=== PATIENT | female | born 2000 | race Caucasian/White ===

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

== ENCOUNTER 2021-02-06 16:40 | Emergency (ER) | payer BC, SELFPAY ==
[2021-02-06 16:41] VITALS: BP 147/90; PULSE 95; RESP 16; TEMP 36.8; O2SAT 97; BMI 22.8
--- NOTE | 2021-02-06 16:58 | EKG12_ITS ---
Test Reason : IRREGULARBEAT Blood Pressure : / mmHG Vent. Rate : 100 BPM Atrial Rate : 100 BPM P-R Int : 158 ms QRS Dur : 080 ms QT Int : 350 ms P-R-T Axes : 077 058 035 degrees QTc Int : 451 ms Normal sinus rhythm Normal ECG Confirmed by PEDRO PABLO PEREZ, LEO ([id number]), non linear editor FABIÁN BARRY ([id number]) on 02/07/2021 12:54:35 PM Referred By: HERNAN Confirmed By:MARIE CHAMORRO MD
--- NOTE | 2021-02-06 17:00 | EDS_ITS ---
HPI History of Present Illness Chief Complaint: Palpitations Informant: patient Onset/Context/Timing Onset: Yesterday Context: Gradual Onset Timing: Intermittent Current Severity: Mild Maximum Severity: Moderate Narrative Narrative: Patient present secondary to palpitations. Patient states symptoms started last night. She initially thought her heart was skipping a few beats. She now feels like her heart is intermittently beating into her throat. She has no other symptoms. She called the nurse hotline who suggested if she has any further symptoms to go to the emergency room. She talked to her GP who recommended she come in for at least an EKG. [facility] Medical History (Updated 02/06/21 @ 18:[address] Michelle Castillo MD) Anxiety Delayed gastric emptying Eosinophilic esophagitis IBS (irritable bowel syndrome) Home Medications amitriptyline 10 mg PO DAILY 07/18/19 [History Last Taken Unknown] norgestimate-ethinyl estradiol 1 ea PO DAILY 07/18/19 [History Last Taken Unknow n] lorazepam 1 mg PO TID PRN #9 tab 07/20/19 [Rx Last Taken Unknown] ondansetron HCl 8 mg PO Q8H PRN 07/20/19 [History Last Taken Unknown] promethazine 25 mg PO Q8H PRN PRN #15 tab 07/20/19 [Rx Last Taken Unknown] Allergy/AdvReac Type Severity Reaction Status Date / Time buspirone [From BuSpar] Allergy Chest Verified 02/06/21 16:44 tightness clindamycin Allergy Fever and Verified 02/06/21 16:44 skin rash latex Allergy Rash Verified 02/06/21 16:43 Penicillins Allergy Anaphylaxis Verified 02/06/21 16:43 sulfamethoxazole Allergy NEEDS Verified 02/06/21 16:44 [From Bactrim] FOLLOW-UP trimethoprim [From Bactrim] Allergy NEEDS Verified 02/06/21 16:44 FOLLOW-UP aspartame AdvReac Other Verified 02/06/21 16:43 caffeine AdvReac Vomiting Verified 02/06/21 16:43 peanut AdvReac Vomiting Verified 02/06/21 16:43 red dye AdvReac Vomiting Verified 02/06/21 16:43 tree nut AdvReac Vomiting Verified 02/06/21 16:43 DAIRY AdvReac Vomiting Uncoded 02/06/21 16:43 MSG AdvReac Other Uncoded 02/06/21 16:43 Family History Other Thyroid disorder Social History Smoking Status: Never smoker ROS ROS ED Constitutional Constitutional ED: Denies chills or fever(s) Eyes Eyes: Denies change in vision ENT ENT ED: Denies sore throat Cardiovascular Cardiovascular: Reports palpitations; Denies chest pain Respiratory/Chest Respiratory/Chest: Denies cough or dyspnea Gastrointestinal Gastrointestinal: Denies abdominal pain, diarrhea, nausea or vomiting Genitourinary Genitourinary ED: Denies dysuria Musculoskeletal Musculoskeletal: Denies back pain Integumentary Denies rash Neurologic Neurologic: Denies headache(s) or weakness Psychiatric Psychiatric: Denies anxiety or depression Endocrine Endocrinology: Denies polydipsia or polyuria Allergic/Immunologic Allergic/Immunologic ED: Denies urticaria EXAM Physical Exam Const Vital Signs: 02/06/21 16:41 02/06/21 17:51 Temperature 98.2 F Temperature Source Temporal Pulse Rate 95 92 Respiratory Rate 16 99 H Blood Pressure 147/90 H Blood Pressure Mean 109 Pulse Ox 97 99 Oxygen Delivery Method Room Air Room Air Positive well nourished and well developed General Appearance ED: well developed HEENT Reports normocephalic and head/scalp atraumatic Eyes PERRL and EOMs intact bilaterally Neck supple Chest Wall inspection of chest normal and palpation of chest normal Resp normal respiratory effort and clear to auscultation bilaterally Cardio regular rate and regular rhythm GI normal to inspection, nondistended, normoactive bowel sounds Palpation: soft Back/Spine no CVA tenderness Extremity normal to inspection Neuro oriented x3 and no sensory deficits noted Sensorium / Orientation: alert Motor Exam: strength 5/5 throughout Psych mental status grossly normal Skin no rashes or lesions noted MDM MDM MDM Narrative Medical decision making narrative: Patient was placed on cardiac cath lab radiology technologist. EKG and labs are obtained. Lab Data Attestation: I reviewed the patient's lab results. Labs: Laboratory Results - last 24 hr 02/06/21 02/06/21 02/06/21 17:05 17:05 17:05 WBC 6.7 RBC 4.48 Hgb 12.5 Hct 38.4 MCV 85.7 MCH 27.9 MCHC 32.6 RDW Std Deviation 42.1 RDW Coeff of Bucky 13.6 Plt Count 327 MPV 9.1 Immature Gran % (Auto) 0.200 Neut % (Auto) 62.8 Lymph % (Auto) 29.0 [place] % (Auto) 6.6 Eos % (Auto) 1.1 Baso % (Auto) 0.3 Absolute Neuts (auto) 4.2 Absolute Lymphs (auto) 1.93 Nucleated RBC % 0 Sodium 140 Potassium 3.9 Chloride 107 Carbon Dioxide 27.0 Anion Gap 6 BUN 10 Creatinine 0.71 Estim Creat Clear Calc 128.56 Est GFR (MDRD) Af Amer 136 Est GFR (MDRD) Non-Af 112 BUN/Creatinine Ratio 14.1 Glucose 114 H Calcium 9.0 TSH 1.66 Serum , Qual NEGATIVE EKG Initial EKG: Attestation: I personally reviewed and interpreted this EKG as follows: Interpretation: Sinus Rhythm (Sinus at 100 with no acute ischemia. Normal intervals.) Treatment and Re-Evaluation Comments:: On repeat evaluation patient resting comfortably. Test results disc ussed with her and all are unremarkable. Patient continue to monitor her symptoms and return if needed. She will follow up with her GP as soon as possible. Discharge Plan Triage Chief Complaint: Palpitations ED Provider: Michelle Castillo Dx/Rx/DC Orders Clinical Impression: Heart palpitations Instructions: ED Palpitations Prescriptions: No Action norgestimate-ethinyl estradiol 1 EACH tablet 1 ea PO DAILY RF: 0 amitriptyline 10 MG tablet 10 mg PO DAILY RF: 0 ondansetron HCl 8 MG tablet 8 mg PO Q8H PRN (Reason: NAUSEA/VOMITNG) RF: 0 promethazine 25 MG tablet 25 mg PO Q8H PRN PRN (Reason: Nausea) Qty: 15 RF: 0 lorazepam 1 MG tablet 1 mg PO TID PRN (Reason: abdominal migraine) Qty: 9 RF: 0 Referrals: IVANIA CASTILLO [Other] - As soon as possible Disposition Disposition: Home, self care
--- NOTE | 2021-02-06 17:13 | NURSING ---
NO OLD EKGS
[2021-02-06 17:20] LABS: Absolute Lymphocyte Count 1.93 X10^3/uL (0.83-4.51); Absolute Neutrophil Count 4.2 X10^3/uL (2.0-7.7); Basophil# 0.02 X10^3/uL; Basophil% 0.3 % (0-1); Eosinophil# 0.07 X10^3/uL; Eosinophils% 1.1 % (0-5); Hematocrit 38.4 % (37-47); Hemoglobin 12.5 g/dL (12.0-15.0); Lymphocyte # 1.93 X10^3/ul (0.83-4.51); Mean Corp Hgb Conc 32.6 g/dL (32-36); Mean Corpuscular Hgb 27.9 pg (27.0-32.0); Mean Corpuscular Volume 85.7 fL (81-99); Mean Platelet Vol. 9.1 fl (6.2-12.0); Monocyte# 0.44 X10^3/uL; Monocyte% 6.6 % (0-10); NRBC Flagged by Analyzer 0 % (0-5); Neutrophil # 4.18 X10^3/uL (2.7-7.7); Neutrophil % 62.8 % (47-70); Platelet Count 327 K/mm3 (150-450); RBC Distribution Width CV 13.6 % (11.6-14.6); RBC Distribution Width SD 42.1 fl (35.1-43.9); Red Blood Count 4.48 M/mm3 (4.2-5.4); White Blood Count 6.7 K/mm3 (4.4-11.0)
[2021-02-06 17:43] LABS: Anion Gap 6 (5-15); BUN 10 mg/dL (7-18); BUN/Creat Ratio 14.1 RATIO (10-20); Chloride 107 mmol/L (98-107); Creatinine, Serum 0.71 mg/dL (0.55-1.02); EST Glomerular Filtration Rate 112 mL/min (>60); Est Glom Filt Rate - Afr Amer 136 mL/min (>60); Estimated Creatinine Clearance 128.56 ml/min; Glucose 114 mg/dL (74-106); Potassium 3.9 mmol/L (3.5-5.1); Sodium Level 140 mmol/L (136-145); Thyroid Stim Hormone (TSH) 1.66 uIU/mL (0.358-3.74)
[2021-02-06 17:51] VITALS: PULSE 92; RESP 99; O2SAT 99
[2021-02-06 18:03] LABS: Internal QC Validated? YES +Cl - CLEAR BKGD; Pregnancy, Serum, hCG Quali. NEGATIVE Negative
[2021-02-06 18:20] VITALS: PULSE 87; RESP 16; RESP 18; O2SAT 100
== END 2021-02-06 18:20 | disposition home or self-care (01) ==
PROVIDERS: Emergency Provider Emergency Medicine
DX: R00.2 Palpitations (principal); F41.9 Anxiety disorder, unspecified; K58.9 Irritable bowel syndrome, unspecified; Z87.19 Personal history of other diseases of the digestive system; Z79.899 Other long term (current) drug therapy
CPT/HCPCS: 80048; 84443; 84703; 85025; 93005; 99284; A4216

== ENCOUNTER 2021-05-06 18:39 | Emergency (ER) | payer BC, SELFPAY ==
[2021-05-06 18:40] VITALS: BP 127/85; PULSE 97; RESP 14; TEMP 36.6; O2SAT 99; BMI 22.8
[2021-05-06 20:16] LABS: Bacteria 0 SEEN /hpf (None Seen); Mucous, Urine 0 SEEN /hpf (<or=2+); Red Blood Cells-Urine 0 SEEN /hpf (0-5); White Blood Cells 0 SEEN /hpf (0-5)
--- NOTE | 2021-05-06 20:18 | EDS_ITS ---
HPI HPI - GI History of Present Illness Chief Complaint: Abd Pain Informant: patient Abdominal Pain/Flank Pain Onset: Today Context: Gradual Onset Timing: Continuous Quality: Aching and Cramping Location: LLQ Current Severity: Mild Maximum Severity: Mild Worsened by: Nothing Relieved by: Nothing Nausea/Vomiting/Emesis GI Symptom: Positive for Nausea; Negative for Vomiting Diarrhea/Melena/Hematochezia GI Symptom: Negative for Diarrhea, Melena and Hematochezia Associated Symptoms Associated Symptoms: Negative for Dysuria, Frequency, Hematuria and Urgency LMP: Months ago. Is on control. Narrative Narrative: 21-year-old female history of anxiety and irritable bowel syndrome along with ovarian cysts. States that she has had some nausea lately and complaining of left lower quadrant pelvic pain. Denies any vaginal bleeding or discharge. No dysuria. No fever or chills. Denies any prior abdominal surgery she has had endoscopies before. Prior similar symptoms: Yes Recent Illness/Hospitalization: No PFSH PFSH Medical History Anxiety Delayed gastric emptying Eosinophilic esophagitis IBS (irritable bowel syndrome) Home Medications amitriptyline 20 mg PO DAILY 07/18/19 [History Last Taken Unknown] norgestimate-ethinyl estradiol 1 ea PO DAILY 07/18/19 [History Last Taken Unknown] lorazepam 1 mg PO TID PRN #9 tab 07/20/19 [Rx Last Taken Unknown] ondansetron HCl 8 mg PO Q8H PRN 07/20/19 [History Last Taken Unknown] promethazine 25 mg PO Q8H PRN PRN #15 tab 07/20/19 [Rx Last Taken Unknown] gabapentin 300 mg PO DAILY 05/06/21 [History Last Taken Unknown] omeprazole [Prilosec] 40 mg PO DAILY 05/06/21 [History Last Taken Unknown] Allergy/AdvReac Type Severity Reaction Status Date / Time buspirone [From BuSpar] Allergy Chest Verified 05/06/21 18:43 tightness clindamycin Allergy Fever and Verified 05/06/21 18:43 skin rash latex Allergy Rash Verified 05/06/21 18:43 Penicillins Allergy Anaphylaxis Verified 05/06/21 18:43 sulfamethoxazole Allergy NEEDS Verified 05/06/21 18:43 [From Bactrim] FOLLOW-UP trimethoprim [From Bactrim] Allergy NEEDS Verified 05/06/21 18:43 FOLLOW-UP wheat Allergy Other Verified 05/06/21 18:43 aspartame AdvReac Other Verified 05/06/21 18:43 caffeine AdvReac Vomiting Verified 05/06/21 18:43 peanut AdvReac Vomiting Verified 05/06/21 18:43 red dye AdvReac Vomiting Verified 05/06/21 18:43 tree nut AdvReac Vomiting Verified 05/06/21 18:43 DAIRY AdvReac Vomiting Uncoded 05/06/21 18:43 MSG AdvReac Other Uncoded 05/06/21 18:43 Family History Other Thyroid disorder Social History Smoking Status: Never smoker ROS ROS ED ROS Narrative Nausea. Review of Systems ROS Unobtainable: Denies due to encephalopathy Constitutional Constitutional ED: Denies chills or fever(s) ENT ENT ED: Denies ear pain or sore throat Cardiovascular Cardiovascular: Denies chest pain Respiratory/Chest Respiratory/Chest: Denies cough or dyspnea Gastrointestinal Gastrointestinal: Reports abdominal pain and nausea; Denies constipation, diarrhea or vomiting Genitourinary Genitourinary ED: Denies dysuria or hematuria Musculoskeletal Musculoskeletal: Denies myalgias Integumentary Denies rash Neurologic Neurologic: Denies headache(s) Psychiatric Psychiatric: Denies depression Endocrine Endocrinology: Denies polyuria Hematologic/Lymphatic Hematologic/Lymphatic: Denies easy bruising Allergic/Immunologic Allergic/Immunologic ED: Denies urticaria EXAM Physical Exam Narrative Exam Narrative: 21-year-old female no acute distress. H EENT exam normal. Lungs clear. Heart regular rhythm. Abdomen soft mild left lower quadrant tenderness. No rebound guarding rigidity. No hernia or mass. No distention. Right upper right lower quadrant unremarkable. Moving all 4 extremities. Back nontender. Neurologically awake and alert. Vital signs stable and afebrile. Const Vital Signs: 05/06/21 18:40 Temperature 97.8 F Temperature Source Temporal Pulse Rate 97 Respiratory Rate 14 Blood Pressure 127/85 H Blood Pressure Mean 99 Pulse Ox 99 Oxygen Delivery Method Room Air Positive well nourished and well developed; Negative for obese, cachectic, contractures or unkempt General Appearance ED: well developed and NAD; Negative for unkempt, cachectic or contractures Nutritional Appearance: Negative for cachectic or obese HEENT Reports moist mucous membranes normocephalic and atraumatic Eyes PERRL and EOMs intact bilaterally Neck no lymphadenopathy, supple and no JVD General: Negative for tenderness Resp normal respiratory effort and clear to auscultation bilaterally Cardio regular rate, regular rhythm, S1 normal heart sound, S2 normal heart sound and no murmurs GI non-distended and no masses; Negative for non-tender GI Narrative: Mild left lower quadrant tenderness. Inspection: Negative for abdominal distention Auscultation: normoactive bowel sounds; Negative for hyperactive bowel sounds or hypoactive bowel sounds Palpation: soft and tender; Negative for guarding, rigid, hepatomegaly, splenomegaly, hernia, mass, pulsatile mass or rebound tenderness present Back/Spine no CVA tenderness General Back: Negative for CVA tenderness Cervical Spine: Negative for cervical spine tenderness Extremity full ROM General Extremety ED: Negative for edema or tenderness General Extremity: Negative for edema Neuro CN's II-XII intact bilaterally and moves all extremities Sensorium / Orientation: alert, oriented to person, oriented to place and oriented to time; Negative for orientation impaired, confused, lethargic or stuporous Motor Exam: strength 5/5 throughout Psych mental status grossly normal Appearance: Negative for unkempt Skin Lesions: no lesions Rashes: no rashes MDM MDM MDM Narrative Medical decision making narrative: Young female left lower quadrant abdominal pain. Exam benign. Has a history of irritable bowel prior ovarian cyst. I will check a UA and urine test. She is having no vaginal bleeding or discharge. She would some Phenergan for nausea. Repeat exam at 11:07 PM patient doing well. Abdomen benign. She feels improved. We went over test results. She will follow up with her MEDICAL ACCOUNTS RECEIVABLE SPECIALIST. Lab Data Attestation: I reviewed the patient's lab results. Lab results narrative: UA negative. negative. Labs: Laboratory Results - last 24 hr 05/06/21 05/06/21 20:05 20:18 Urine Color Yellow Yellow Urine Clarity Clear Sl. Cloudy Urine pH 7.0 7.0 Ur Specific [place] 1.010 1.005 Urine Protein Negative Negative Urine Glucose (UA) Normal Normal Urine Ketones Negative Negative Urine Occult Blood Negative Negative Urine Nitrite Negative Negative Urine Bilirubin Negative Negative Urine Urobilinogen Normal Normal Ur Leukocyte Esterase Negative Negative Urine RBC 0 SEEN 0 SEEN Urine WBC 0 SEEN 0 SEEN Ur Squamous Epith Cells 0-5 SEEN 0-5 SEEN Urine Bacteria 0 SEEN 0 SEEN Urine Mucus 0 SEEN 0 SEEN Urine Test Negative Negative Discharge Plan Triage Chief Complaint: Abd Pain ED Provider: Michael Leonard Dx/Rx/DC Orders Clinical Impression: Pelvic pain, History of IBS, History of ovarian cyst Instructions: Abdominal Pain Prescriptions: No Action norgestimate-ethinyl estradiol 1 EACH tablet 1 ea PO DAILY RF: 0 amitriptyline 10 MG tablet 20 mg PO DAILY RF: 0 ondansetron HCl 8 MG tablet 8 mg PO Q8H PRN (Reason: NAUSEA/VOMITNG) RF: 0 promethazine 25 MG tablet 25 mg PO Q8H PRN PRN (Reason: Nausea) Qty: 15 RF: 0 lorazepam 1 MG tablet 1 mg PO TID PRN (Reason: abdominal migraine) Qty: 9 RF: 0 omeprazole [Prilosec] 40 mg Capsule,Delayed Release(Dr/Ec) 40 mg PO DAILY RF: 0 gabapentin 300 mg Tablet 300 mg PO DAILY RF: 0 Referrals: IVANIA CASTILLO [Other] Alfred Arias MD [STAFF PHYSICIAN] - 3-5 Days Activity Restrictions/Additional Instructions: Follow-up with your MEDICAL ACCOUNTS RECEIVABLE SPECIALIST. Tylenol Motrin for pain. Most likely this was either pain from your irritable bowel or potentially ovarian cyst. They can get an ultrasound as needed. You are not and your urinalysis was normal. Disposition Disposition: Home, Self Care
[2021-05-06 20:21] LABS: Color, Urine Yellow (Yellow); Glucose, Dipstick Normal (Normal); Internal QC Validated? YES +Cl - CLEAR BKGD; Ketone-Dipstick Negative (Negative); Leukocyte Esterase-Dipstick Negative /ul (Negative); Nitrite-Dipstick Negative (Negative); Occult Blood-Urine Negative /ul (Negative); Pregnancy, Urine Negative Negative; Protein-Dipstick Negative (Negative); Urine Bilirubin Dipstick Negative (Negative); Urine Clarity Clear (Clear); Urine Urobilinogen Normal (Normal)
[2021-05-06 20:44] LABS: Squamous Epithelial Cells - UA 0-5 SEEN /hpf (5-10)
[2021-05-06] MEDS: proMETHazine 25 MG Tablet PO (20:46)
[2021-05-06 21:00] LABS: Bacteria 0 SEEN /hpf (None Seen); Color, Urine Yellow (Yellow); Glucose, Dipstick Normal (Normal); Ketone-Dipstick Negative (Negative); Leukocyte Esterase-Dipstick Negative /ul (Negative); Mucous, Urine 0 SEEN /hpf (<or=2+); Nitrite-Dipstick Negative (Negative); Occult Blood-Urine Negative /ul (Negative); Protein-Dipstick Negative (Negative); Red Blood Cells-Urine 0 SEEN /hpf (0-5); Specific Gravity, Urine 1.005 (1.002-1.030); Urine Bilirubin Dipstick Negative (Negative); Urine Clarity Sl. Cloudy (Clear); Urine Urobilinogen Normal (Normal); White Blood Cells 0 SEEN /hpf (0-5)
[2021-05-06 21:04] LABS: Internal QC Validated? YES +Cl - CLEAR BKGD; Pregnancy, Urine Negative Negative
[2021-05-06 21:06] LABS: Squamous Epithelial Cells - UA 0-5 SEEN /hpf (5-10)
[2021-05-06 23:17] VITALS: RESP 16
== END 2021-05-06 23:18 | disposition home or self-care (01) ==
PROVIDERS: Emergency Provider Emergency Medicine
DX: R10.2 Pelvic and perineal pain (principal); K58.9 Irritable bowel syndrome, unspecified; N83.209 Unspecified ovarian cyst, unspecified side; F41.9 Anxiety disorder, unspecified; Z87.19 Personal history of other diseases of the digestive system; Z79.3 Long term (current) use of hormonal contraceptives; Z79.899 Other long term (current) drug therapy
CPT/HCPCS: 81001; 81025; 99283

== ENCOUNTER → 2022-05-02 | Outpatient (CLI) | payer BC, SELFPAY ==
[2022-05-12 20:59] LABS: HPV Reflexed? NOT INDICATED
== END | disposition home or self-care (01) ==
LOC: LABSPEC 05-05 10:10
PROVIDERS: Visit Provider Student in an Organized Health Care Education/Training Program
DX: Z12.4 Encounter for screening for malignant neoplasm of cervix (principal)
CPT/HCPCS: 88175; G0145

== ENCOUNTER 2022-05-27 15:16 | Emergency (ER) | payer BC, SELFPAY ==
[2022-05-27 15:20] VITALS: BP 123/82; PULSE 106; RESP 15; TEMP 36.8; O2SAT 100; BMI 24.3
--- NOTE | 2022-05-27 17:46 | EX.ED.DYSGE1 ---
HPI History of Present Illness Chief Complaint: Weakness Detail of Chief Complaint: Migraine, weakness Informant: patient Onset/Context/Timing Onset: Today Context: Gradual Onset Current Severity: Mild Maximum Severity: Moderate Narrative Narrative: Patient presents with primary concern of migraine headache. She is a history of migraines along with cyclic vomiting syndrome and mast cell activation syndrome. She is currently undergoing work-up for POTS. Patient states that she drank some grapefruit juice yesterday and she is concerned that may have interacted with some of her medications. Today around noon she started feeling very weak and shaky and developed a migraine. She reports that she is been tachycardic. She does have light sensitivity and has had nausea and vomiting with her migraine. [facility] Medical History Anxiety Cyclic vomiting syndrome Delayed gastric emptying Eosinophilic esophagitis IBS (irritable bowel syndrome) Mast cell activation syndrome Home Medications amitriptyline 10 mg tablet 20 mg PO DAILY 07/18/19 [History Last Taken Unknown] norgestimate 0.25 mg-ethinyl estradiol 35 mcg tablet 1 ea PO DAILY 07/18/19 [History Last Taken Unknown] lorazepam 1 mg tablet 1 mg PO TID PRN abdominal migraine #9 tabs 07/20/19 [Rx Last Taken Unknown] ondansetron HCl 8 mg tablet 8 mg PO Q8H PRN NAUSEA/VOMITNG 07/20/19 [History Last Taken Unknown] promethazine 25 mg tablet 25 mg PO Q8H PRN PRN Nausea #15 tabs 07/20/19 [Rx Last Taken Unknown] gabapentin 300 mg tablet 300 mg PO DAILY 05/06/21 [History Last Taken Unknown] omeprazole 40 mg capsule,delayed release 40 mg PO DAILY 05/06/21 [History Last Taken Unknown] Allergy/AdvReac Type Severity Reaction Status Date / Time buspirone [From BuSpar] Allergy Chest Verified 05/27/22 15:19 tightness clindamycin Allergy Fever and Verified 05/27/22 15:19 skin rash latex Allergy Rash Verified 05/27/22 15:19 Penicillins Allergy Anaphylaxis Verified 05/27/22 15:19 sulfamethoxazole Allergy NEEDS Verified 05/27/22 15:19 [From Bactrim] FOLLOW-UP trimethoprim [From Bactrim] Allergy NEEDS Verified 05/27/22 15:19 FOLLOW-UP wheat Allergy Other Verified 05/27/22 15:19 aspartame AdvReac Other Verified 05/27/22 15:19 caffeine AdvReac Vomiting Verified 05/27/22 15:19 Milk Containing Products AdvReac Vomiting Verified 05/27/22 15:19 monosodium glutamate AdvReac NEEDS Verified 05/27/22 15:19 FOLLOW-UP peanut AdvReac Vomiting Verified 05/27/22 15:19 red dye AdvReac Vomiting Verified 05/27/22 15:19 tree nut AdvReac Vomiting Verified 05/27/22 15:19 Family History Other Thyroid disorder Social History Smoking Status: Never smoker ROS ROS ED Constitutional Constitutional ED: Denies chills or fever(s) Eyes Eyes: Denies change in vision or discharge from eye(s) ENT ENT ED: Reports other Details: Mild congestion ; Denies discharge from eye(s), rhinorrhea or sore throat Cardiovascular Cardiovascular: Denies chest pain or palpitations Respiratory/Chest Respiratory/Chest: Denies cough or dyspnea Gastrointestinal Gastrointestinal: Reports nausea and vomiting; Denies abdominal pain or diarrhea Genitourinary Genitourinary ED: Denies difficulty urinating or dysuria Musculoskeletal Musculoskeletal: Denies back pain or extremity pain Integumentary Denies Abrasions or rash Neurologic Neurologic: Reports headache(s) and weakness Psychiatric Psychiatric: Denies anxiety or depression Allergic/Immunologic Allergic/Immunologic ED: Denies lip swelling or urticaria EXAM Physical Exam Const Vital Signs: 05/27/22 15:20 05/27/22 18:05 Temperature 98.3 F Temperature Source Temporal Pulse Rate 106 H 88 Respiratory Rate 15 18 Blood Pressure 123/82 H 125/80 H Blood Pressure Mean 95 95 Pulse Ox 100 100 Oxygen Delivery Method Room Air Room Air Positive well nourished and well developed General Appearance ED: well developed HEENT Reports normocephalic and head/scalp atraumatic Eyes PERRL and EOMs intact bilaterally Neck supple Chest Wall inspection of chest normal and palpation of chest normal Resp normal respiratory effort and clear to auscultation bilaterally Cardio regular rhythm Rate: tachycardic GI normal to inspection, nondistended, normoactive bowel sounds Palpation: soft Extremity normal to inspection Neuro oriented x3 and no sensory deficits noted Sensorium / Orientation: alert Motor Exam: strength 5/5 throughout Psych mental status grossly normal Skin no rashes or lesions noted MDM MDM MDM Narrative Medical decision making narrative: Patient given Toradol, Reglan, Benadryl, IV fluids. Lab work obtained. EKG ordered. Lab Data Attestation: I reviewed the patient's lab results. Labs: Laboratory Results - last 24 hr 05/27/22 05/27/22 17:40 17:40 WBC 8.4 RBC 4.94 Hgb 13.5 Hct 42.0 MCV 85.0 MCH 27.3 MCHC 32.1 RDW Std Deviation 43.4 RDW Coeff of Bucky 14.0 Plt Count 377 MPV 9.0 Immature Gran % (Auto) 0.200 Neut % (Auto) 63.2 Lymph % (Auto) 31.4 [place] % (Auto) 4.5 Eos % (Auto) 0.5 Baso % (Auto) 0.2 Absolute Neuts (auto) 5.3 Absolute Lymphs (auto) 2.65 Nucleated RBC % 0 Sodium 139 Potassium 3.6 Chloride 103 Carbon Dioxide 25.0 Anion Gap 11 BUN 8 Creatinine 0.74 Estim Creat Clear Calc 121.31 Est GFR (MDRD) Af Amer 127 Est GFR (MDRD) Non-Af 105 BUN/Creatinine Ratio 10.8 Glucose 87 Calcium 9.8 EKG Initial EKG: Attestation: I personally reviewed and interpreted this EKG as follows: Interpretation: Sinus Rhythm (Sinus at 96 with no acute ischemia.) Treatment and Re-Evaluation Narrative: On repeat evaluation patient feels much improved. Lab work is unremarkable. She has received a liter of IV fluids here. She will be discharged home to continue supportive care. Discharge Plan Triage Chief Complaint: Weakness ED Provider: Michelle Castillo Dx/Rx/DC Orders Clinical Impression: Migraine Instructions: ED, Migraine (Classical) Prescriptions: No Action norgestimate-ethinyl estradiol 1 EACH tablet 1 ea PO DAILY amitriptyline 10 MG tablet 20 mg PO DAILY ondansetron HCl 8 MG tablet 8 mg PO Q8H PRN (Reason: NAUSEA/VOMITNG) promethazine 25 MG tablet 25 mg PO Q8H PRN PRN (Reason: Nausea) Qty: 15 0RF lorazepam 1 MG tablet 1 mg PO TID PRN (Reason: abdominal migraine) Qty: 9 0RF omeprazole [Prilosec] 40 mg Capsule,Delayed Release(Dr/Ec) 40 mg PO DAILY gabapentin 300 mg Tablet 300 mg PO DAILY Primary Care Provider: Care Physician,No Primary Referrals: [facility] Doctor,Out of [Non-Staff] - Disposition Disposition: Home, Self Care
[2022-05-27] MEDS: 0.9% Normal Saline 1,000 ML 1000 ML IV (17:57)
[2022-05-27] MEDS: DiphenhydrAMINE 50 MG/ML Syringe 25 MG IV (17:59)
[2022-05-27] MEDS: Metoclopramide 10 MG/2 ML Vial IV (18:00)
[2022-05-27] MEDS: Ketorolac 30 MG/ML Syringe IV (18:02)
[2022-05-27 18:05] VITALS: BP 125/80; PULSE 88; RESP 18; O2SAT 100
[2022-05-27 18:05] LABS: Absolute Lymphocyte Count 2.65 X10^3/uL (0.83-4.51); Absolute Neutrophil Count 5.3 X10^3/uL (2.0-7.7); Basophil# 0.02 X10^3/uL; Basophil% 0.2 % (0-1); Eosinophil# 0.04 X10^3/uL; Eosinophils% 0.5 % (0-5); Hemoglobin 13.5 g/dL (12.0-15.0); Lymphocyte # 2.65 X10^3/ul (0.83-4.51); Lymphocyte % 31.4 % (19-41); Mean Corp Hgb Conc 32.1 g/dL (32-36); Mean Corpuscular Hgb 27.3 pg (27.0-32.0); Monocyte# 0.38 X10^3/uL; Monocyte% 4.5 % (0-10); NRBC Flagged by Analyzer 0 % (0-5); Neutrophil # 5.33 X10^3/uL (2.7-7.7); Neutrophil % 63.2 % (47-70); Platelet Count 377 K/mm3 (150-450); RBC Distribution Width SD 43.4 fl (35.1-43.9); Red Blood Count 4.94 M/mm3 (4.2-5.4); White Blood Count 8.4 K/mm3 (4.4-11.0)
[2022-05-27 18:22] LABS: Anion Gap 11 (5-15); BUN 8 mg/dL (7-18); BUN/Creat Ratio 10.8 RATIO (10-20); Calcium,Total 9.8 mg/dL (8.5-10.1); Chloride 103 mmol/L (98-107); Creatinine, Serum 0.74 mg/dL (0.55-1.02); EST Glomerular Filtration Rate 105 mL/min (>60); Est Glom Filt Rate - Afr Amer 127 mL/min (>60); Estimated Creatinine Clearance 121.31 ml/min; Glucose 87 mg/dL (74-106); Potassium 3.6 mmol/L (3.5-5.1); Sodium Level 139 mmol/L (136-145)
[2022-05-27 19:12] VITALS: BP 118/26; PULSE 87; RESP 16
== END 2022-05-27 19:21 | disposition home or self-care (01) ==
PROVIDERS: Emergency Provider Emergency Medicine; Visit Provider Emergency Medicine
DX: G43.909 Migraine, unspecified, not intractable, without status migrainosus (principal); F41.9 Anxiety disorder, unspecified; K58.9 Irritable bowel syndrome, unspecified; Z79.899 Other long term (current) drug therapy
CPT/HCPCS: 80048; 85025; 93005; 96361; 96374; 96375; 99284; J7030; A4216

== ENCOUNTER 2022-08-06 15:58 | Emergency (ER) | payer BC, SELFPAY ==
[2022-08-06 15:59] VITALS: BP 137/91; PULSE 106; RESP 18; TEMP 36.6; O2SAT 98; BMI 25.5
[2022-08-06] MEDS: Metoclopramide 10 MG/2 ML Vial IV (17:57)
[2022-08-06] MEDS: 0.9% Normal Saline 1,000 ML 999 ML IV (17:57)
[2022-08-06] MEDS: DiphenhydrAMINE 50 MG/ML Syringe 25 MG IV (17:57)
[2022-08-06] MEDS: Ketorolac 30 MG/ML Syringe IV (17:57)
--- NOTE | 2022-08-06 18:14 | EDS_ITS ---
HPI <ERICK Cohen - Last Filed: 08/06/22 20:58> History of Present Illness Chief Complaint: Headache Narrative Narrative: Patient presents today with a migraine that she has had over the past 2 days. She states she has a history of migraines and has had migraines like this before. She has been trying to take ibuprofen, Benadryl, and Phenergan but has only had mild relief and wanted to come here for treatment. She admits to a halo of light aura in her vision, photophobia, nausea, and has vomited 3 times today. Patient denies abdominal pain, phonophobia, lightheadedness, and dizziness. She denies any head injury. PFS <ERICK Cohen - Last Filed: 08/06/22 20:58> [facility] Medical History Anxiety Cyclic vomiting syndrome Delayed gastric emptying Eosinophilic esophagitis IBS (irritable bowel syndrome) Mast cell activation syndrome Home Medications amitriptyline 10 mg tablet 20 mg PO DAILY 07/18/19 [History Last Taken Unknown] norgestimate 0.25 mg-ethinyl estradiol 35 mcg tablet 1 ea PO DAILY 07/18/19 [History Last Taken Unknown] lorazepam 1 mg tablet 1 mg PO TID PRN abdominal migraine #9 tabs 07/20/19 [Rx Last Taken Unknown] ondansetron HCl 8 mg tablet 8 mg PO Q8H PRN NAUSEA/VOMITNG 07/20/19 [History Last Taken Unknown] promethazine 25 mg tablet 25 mg PO Q8H PRN PRN Nausea #15 tabs 07/20/19 [Rx Last Taken Unknown] gabapentin 300 mg tablet 300 mg PO DAILY 05/06/21 [History Last Taken Unknown] omeprazole 40 mg capsule,delayed release 40 mg PO DAILY 05/06/21 [History Last Taken Unknown] cetirizine 10 mg tablet 10 mg PO BID 08/06/22 [History Last Taken Unknown] cholecalciferol (vitamin D3) 10 mcg (400 unit) capsule (Vitamin D3) 10 mcg PO DAILY 08/06/22 [History Last Taken Unknown] cromolyn 100 mg/5 mL oral concentrate 100 mg PO Q6H 08/06/22 [History Last Taken Unknown] famotidine 20 mg tablet 20 mg PO BID 08/06/22 [History Last Taken Unknown] hydroxyzine HCl 25 mg tablet 25 mg PO Q6H 08/06/22 [History Last Taken Unknown] Allergy/AdvReac Type Severity Reaction Status Date / Time buspirone [From BuSpar] Allergy Chest Verified 08/06/22 15:58 tightness clindamycin Allergy Fever and Verified 08/06/22 15:58 skin rash latex Allergy Rash Verified 08/06/22 15:58 Penicillins Allergy Anaphylaxis Verified 08/06/22 15:58 sulfamethoxazole Allergy NEEDS Verified 08/06/22 15:58 [From Bactrim] FOLLOW-UP trimethoprim [From Bactrim] Allergy NEEDS Verified 08/06/22 15:58 FOLLOW-UP wheat Allergy Other Verified 08/06/22 15:58 aspartame AdvReac Other Verified 08/06/22 15:58 caffeine AdvReac Vomiting Verified 08/06/22 15:58 Milk Containing Products AdvReac Vomiting Verified 08/06/22 15:58 monosodium glutamate AdvReac NEEDS Verified 08/06/22 15:58 FOLLOW-UP peanut AdvReac Vomiting Verified 08/06/22 15:58 red dye AdvReac Vomiting Verified 08/06/22 15:58 tree nut AdvReac Vomiting Verified 08/06/22 15:58 Family History Other Thyroid disorder Social History Smoking Status: Never smoker ROS <ERICK Cohen - Last Filed: 08/06/22 20:58> ROS ED Constitutional Constitutional ED: Denies chills, fever(s) or sweats Eyes Eyes: Reports photophobia; Denies blurry vision or change in vision ENT ENT ED: Reports other Details: Denies phonophobia. ; Denies disequillibrium, dizziness, ear pain, rhinorrhea or sore throat Cardiovascular Cardiovascular: Denies chest pain or palpitations Respiratory/Chest Respiratory/Chest: Denies cough, dyspnea, dyspnea on exertion, shortness of breath at rest or shortness of breath with exertion Gastrointestinal Gastrointestinal: Reports nausea and vomiting; Denies abdominal pain, constipation, diarrhea, hematemesis, hematochezia or melena Genitourinary Genitourinary ED: Denies dysuria, hematuria or urinary frequency Musculoskeletal Musculoskeletal: Denies myalgias or neck pain Integumentary Denies abscess, Abrasions or rash Neurologic Neurologic: Reports headache(s); Denies dizziness, paresthesias or weakness Psychiatric Psychiatric: Denies anxiety EXAM <ERICK Cohen - Last Filed: 08/06/22 20:58> Physical Exam Const Vital Signs: 08/06/22 15:59 08/06/22 19:55 Temperature 97.8 F Temperature Source Temporal Pulse Rate 106 H 83 Respiratory Rate 18 16 Blood Pressure 137/91 H 123/70 H Blood Pressure Mean 106 87 Pulse Ox 98 100 Oxygen Delivery Method Room Air Room Air Positive well nourished and well developed General Appearance ED: well developed HEENT Reports normocephalic and moist mucous membranes atraumatic; Negative for tenderness Eyes PERRL and EOMs intact bilaterally Neck no lymphadenopathy, supple and no meningeal signs Resp normal respiratory effort and clear to auscultation bilaterally Cardio regular rate, regular rhythm and no murmurs GI non-tender and non-distended Auscultation: normoactive bowel sounds Palpation: soft Extremity normal to inspection, full ROM and normal capillary refill Neuro oriented x3, CN's II-XII intact bilaterally and no sensory deficits noted Sensorium / Orientation: awake and alert Speech: speech normal Gait (Neuro): normal gait Motor Exam: strength 5/5 throughout Psych mental status grossly normal Skin General Skin Exam: elasticity normal and turgor normal Lesions: no lesions Rashes: no rashes Trauma: Negative for abrasion <Dr. Sid Gloria MD - Last Filed: 08/06/22 22:09> Physical Exam Const Vital Signs: 08/06/22 15:59 08/06/22 19:55 Temperature 97.8 F Temperature Source Temporal Pulse Rate 106 H 83 Respiratory Rate 18 16 Blood Pressure 137/91 H 123/70 H Blood Pressure Mean 106 87 Pulse Ox 98 100 Oxygen Delivery Method Room Air Room Air MDM <ERICK Cohen - Last Filed: 08/06/22 20:58> [facility] Narrative Medical decision making narrative: Patient has been given fluids, Toradol, Benadryl, and Reglan. Upon reexamination patient was feeling much better and stated she would like to go home. Patient's vital signs have remained stable here in the ED and are within normal limits. I am comfortable with patient discharging home and patient is comfortable with plan. Patient has been given return instructions. <Dr. Sid Gloria MD - Last Filed: 08/06/22 22:09> [facility] Treatment and Re-Evaluation Narrative: Juani-patient was seen by me, she has chronic recurrent headaches, this headache was gradual onset similar to all her headaches. On exam she has a normal neurological exam. She improved significantly with a migraine cocktail. I believe she can be discharged safely. Discharge Plan Triage Chief Complaint: Headache ED Midlevel Provider: Tricia Cleveland ED Provider: Sid Gloria Dx/Rx/DC Orders Clinical Impression: Migraine headache with aura Instructions: ED, Migraine (Classical) Prescriptions: No Action norgestimate-ethinyl estradiol 1 EACH tablet 1 ea PO DAILY amitriptyline 10 MG tablet 20 mg PO DAILY ondansetron HCl 8 MG tablet 8 mg PO Q8H PRN (Reason: NAUSEA/VOMITNG) promethazine 25 MG tablet 25 mg PO Q8H PRN PRN (Reason: Nausea) Qty: 15 0RF lorazepam 1 MG tablet 1 mg PO TID PRN (Reason: abdominal migraine) Qty: 9 0RF omeprazole [Prilosec] 40 mg Capsule,Delayed Release(Dr/Ec) 40 mg PO DAILY gabapentin 300 mg Tablet 300 mg PO DAILY cromolyn 100 mg/5 mL Concentrate 100 mg PO Q6H cetirizine 10 mg Tablet 10 mg PO BID famotidine 20 mg Tablet 20 mg PO BID hydroxyzine HCl 25 mg Tablet 25 mg PO Q6H cholecalciferol (vitamin D3) [Vitamin D3] 10 mcg (400 unit) Capsule 10 mcg PO DAILY Primary Care Provider: Care Physician,No Primary Referrals: Care Physician,No Primary [Primary Care Provider] - Activity Restrictions/Additional Instructions: Please return if symptoms worsen or do not get better. Disposition Disposition: Home, Self Care Discharge Date/Time: 08/06/22 19:56
[2022-08-06 19:55] VITALS: BP 123/70; PULSE 83; RESP 16; O2SAT 100
== END 2022-08-06 19:56 | disposition home or self-care (01) ==
PROVIDERS: Emergency Provider Emergency Medicine; Visit Provider Emergency Medicine
DX: G43.109 Migraine with aura, not intractable, without status migrainosus (principal)
CPT/HCPCS: 96374; 96375; 99283; J7030; A4216